=== PATIENT | female | born 1960 | race Caucasian/White ===

== ENCOUNTER → 2023-04-29 | Outpatient (CLI) | payer BC, SELFPAY ==
[2023-04-29 10:55] LABS: Erythrocyte Sedimentation Rate 22 mm/hr (0-30)
[2023-04-29 11:18] LABS: CRP < 2.90 mg/L (0.0-3.0); Rheumatoid Factor < 10.0 IU/mL (<15)
[2023-04-29 11:29] LABS: Syphilis Antibodies Non-reactive
[2023-05-07 17:07] LABS: Angiotensin Convert Enzyme 18 U/L (14-82); CCP IgG Antibodies 9 units (0-19); Cytoplasmic Ab (C-ANCA) <1:20 titer (Neg:<1:20); HLA B27 Negative (.); Perinuclear Ab (P-ANCA) <1:20 titer (Neg:<1:20)
== END | disposition home or self-care (01) ==
PROVIDERS: Referring Provider Ophthalmology; Visit Provider Ophthalmology
DX: H15.011 Anterior scleritis, right eye (principal)
CPT/HCPCS: 36415; 81374; 82164; 85652; 86140; 86200; 86256; 86431; 86780